=== PATIENT | male | born 1955 | race Caucasian/White ===

== ENCOUNTER 2020-01-12 00:39 | Outpatient (CLI) | payer MEDICARE, SELFPAY ==
[2020-01-12 20:03] LABS: SARS-CoV-2 RNA PCR Negative
== END 2020-01-12 00:40 | disposition home or self-care (01) ==
LOC: ANHCOVIDDT 00:41
PROVIDERS: PCP Family Medicine; Visit Provider Internal Medicine Gastroenterology
DX: Z01.812 Encounter for preprocedural laboratory examination (principal); Z11.59 Encounter for screening for other viral diseases
CPT/HCPCS: 87635; C9803; U0003

== ENCOUNTER 2020-01-14 02:09 | Day surgery (SDC) | payer MEDICARE, SELFPAY ==
[2020-01-06 12:03] VITALS: BMI 32.3
--- NOTE | 2020-01-13 13:19 | P.PNAN_ITS ---
Anes - Initial Pre Proc Eval Procedure: Operation Date: 01/14/20 08:00 Proposed Procedures p Esophagogastroduodenoscopy - Louis Landeros MD Date/Time: 01/13/20 13:19 Surgeon: Louis Landeros MD Pre Op Diagnosis: Matthews's Esophagus Patient Data Age: 64 Gender: M Height: 5 ft 11 in Weight: 105 kg Allergies Allergy/AdvReac Type Severity Reaction Status Date / Time Sulfa (Sulfonamide Allergy Unknown Hives Verified 01/14/20 06:39 Antibiotics) Home Medications Medication Instructions Recorded Confirmed Type clopidogrel 75 mg PO DAILY 01/06/20 01/14/20 History diclofenac-misoprostol 75 tablet PO 3XW PRN 01/06/20 01/06/20 History lisinopril 20 mg PO DAILY 01/06/20 01/06/20 History metformin 500 mg PO BID 01/06/20 01/06/20 History metoprolol succinate 50 mg PO DAILY 01/06/20 01/06/20 History pantoprazole 40 mg PO DAILY 01/06/20 01/06/20 History rosuvastatin 5 mg PO DAILY 01/06/20 01/06/20 History Patient hx anesthesia problems: none Family hx anesthesia problems: none [facility] Past Medical History Medical History (Updated 01/13/20 @ 13:19 by James Gonsales MD) CAD (coronary artery disease) Diabetes Hyperlipidemia Hypertension Myocardial infarct, old Social History Social History Gender identity (if verbalized by the patient): Male Anes - Eval Final PreProcedure Day of Procedure 01/13/20 13:19 Patient weight: obese Heart: regular rate and rhythm Lungs: clear to auscultation Airway: Mallampati scale class II Neurological: alert and oriented Last oral intake: >/= 8 hours ASA classification: III Emergent: no Anesthetic plan: proceed Anesthesia type and monitoring: general GIVS and standard monitoring Informed Consent: The patient's anesthetic plan and its attendant risks and benefits were discussed with the patient/family/POA. Questions were solicited and answers provided to the satisfaction of the patient/family/POA.
[2020-01-14] MEDS: LACTATED RINGERS 1,000 ML 150 ML IV CONT (06:45)
[2020-01-14 06:49] LABS: Glucose Point of Care 127 (65-105)
--- NOTE | 2020-01-14 07:59 | WPDGICN ---
Assessment and Plan Assessment and plan (1) Matthews's esophagus: Code(s): K22.70 - Matthews's esophagus without dysplasia Status: Acute Assessment and Plan: Stable history of Matthews's esophagus underlying GE reflux known. Plan is to continue proton pump inhibitor. Anti-reflux measures encourage. Surveillance EGD now on at 3 years intervals has been advised. (2) Diabetes: Code(s): E11.9 - Type 2 diabetes mellitus without complications Status: Acute (3) CAD (coronary artery disease): Code(s): I25.10 - Atherosclerotic heart disease of [place] coronary artery without angina pectoris Status: Acute (4) Hyperlipidemia: Code(s): E78.5 - Hyperlipidemia, unspecified Status: Acute (5) Hypertension: Code(s): I10 - Essential (primary) hypertension Status: Acute GI Consult Note Consult date/time: 01/14/20 07:59 HPI: Marques Barnes is a 64 year old male seen in evaluation at the request of Dr Miguel Menjivar. Patient presents for screening exam. Patient known to have Matthews's esophagus. Currently symptoms have been stable on proton pump inhibitors. Currently denies dysphagia he denies bleeding. No heartburn at present. Last screening exam was 3 years ago revealed no evidence of dysplasia. Review of Systems Review of Systems: All systems reviewed & are unremarkable except as noted in HPI and below PMFSH Past Medical History Medical History CAD (coronary artery disease) Diabetes Hyperlipidemia Hypertension Myocardial infarct, old Social History Social History Gender identity (if verbalized by the patient): Male Meds Home Medications and Allergies Home Medications Medication Instructions Recorded Confirmed Type clopidogrel 75 mg PO DAILY 01/06/20 01/14/20 History diclofenac-misoprostol 75 tablet PO 3XW PRN 01/06/20 01/06/20 History lisinopril 20 mg PO DAILY 01/06/20 01/06/20 History metformin 500 mg PO BID 01/06/20 01/06/20 History metoprolol succinate 50 mg PO DAILY 01/06/20 01/06/20 History pantoprazole 40 mg PO DAILY 01/06/20 01/06/20 History rosuvastatin 5 mg PO DAILY 01/06/20 01/06/20 History Allergies Allergy/AdvReac Type Severity Reaction Status Date / Time Sulfa (Sulfonamide Allergy Unknown Hives Verified 01/14/20 06:39 Antibiotics) Exam Narrative: Exam Narrative: Physical exam reveals patient to be alert. Vital signs stable. HEENT exam unremarkable. Lungs are clear to auscultation and percussion. Heart is without murmur or extra sounds. Abdominal exam bowel sounds are present soft nontender with no organomegaly.
[2020-01-14] MEDS: BENZOCAINE (*SP) 60 ML SPRAY CAN (HURRICAINE) 1 SPRAY MUCOUS MEM (08:18)
[2020-01-14 08:22] VITALS: BP 102/62; PULSE 60; RESP 23; O2SAT 95
[2020-01-14 08:32] VITALS: BP 100/64; PULSE 58; RESP 21; O2SAT 95
[2020-01-14 08:42] VITALS: BP 109/67; PULSE 56; RESP 21; O2SAT 96
== END 2020-01-14 08:55 | disposition home or self-care (01) ==
PROVIDERS: PCP Family Medicine; Visit Provider Internal Medicine Gastroenterology
PROC: 0DJ08ZZ Inspection of Upper Intestinal Tract, Via Natural or Artificial Opening Endoscopic (ICD-10-PCS; CPT 43235; principal; 2020-01-14 08:00)
DX: K22.70 Barrett's esophagus without dysplasia (principal); K44.9 Diaphragmatic hernia without obstruction or gangrene; E11.9 Type 2 diabetes mellitus without complications; I25.10 Atherosclerotic heart disease of native coronary artery without angina pectoris; E78.5 Hyperlipidemia, unspecified; I10 Essential (primary) hypertension; I25.2 Old myocardial infarction; Z79.84 Long term (current) use of oral hypoglycemic drugs; Z79.02 Long term (current) use of antithrombotics/antiplatelets
CPT/HCPCS: 43239; 88305; J2704; J7120

== ENCOUNTER → 2020-02-11 11:06 | Outpatient (CLI) | payer MEDICARE, SELFPAY ==
--- NOTE | ~2020-02-11 | XR_ITS ---
XR ankle RT min 3V DATE: 02/11/2020 11:57 INDICATION: Right ankle pain TECHNIQUE: Standing 3 view examination COMPARISON: None FINDINGS: There is mild lateral soft tissue swelling. Posterior tibial artery calcification. There is moderate posterior and slight plantar calcaneal enthesopathy. No fracture or dislocation of the ankle or disruption of the ankle mortise is detected. No periosteal reaction or bone destruction. IMPRESSION: Mild lateral soft tissue swelling Calcaneal enthesopathy Reviewed, dictated and finalized at location B.
== END ==
PROVIDERS: Visit Provider Podiatrist Foot & Ankle Surgery
DX: M77.31 Calcaneal spur, right foot (principal); M79.89 Other specified soft tissue disorders
CPT/HCPCS: 73610

== ENCOUNTER 2020-06-10 14:06 | Outpatient (CLI) | payer MEDICARE, SELFPAY ==
--- NOTE | ~2020-06-10 | XR_ITS ---
XR chest 2V 06/10/2020 15:04 Indication: Coronary artery disease. Procedure: PA and lateral views of the chest Comparison: 01/24/2011 Findings: Heart size normal. There is atherosclerosis and ectasia of the aorta. No acute osseous abno rmality. There is a hiatal hernia. There is left basilar atelectasis. Impression: 1: Left basilar atelectasis. Reviewed, dictated and finalized at location B. [facility] Impression: 1: Left basilar atelectasis.
[2020-06-10 15:19] LABS: Basophils Percent Auto 0.6 % (0.2-1.2); Eosinophils Absolute Auto 0.1 K/mm3 (0-0.3); Hematocrit 42.5 % (42.0-52.0); Hemoglobin 14.5 g/dL (14.0-18.0); Immature Granulocyte Absolute 0.02 K/mm3 (0.00-0.031); Immature Granulocyte Percent A 0.3 % (0-0.5); Lymphocytes Absolute Auto 1.85 K/mm3 (0.9-3.2); Lymphocytes Percent Auto 26.4 % (18.3-44.2); Mean Corpuscular HGB Conc 34.1 g/dl (32-36); Mean Corpuscular Hemoglobin 30.4 pg (26-34); Mean Corpuscular Volume 89.1 fl (80-100); Mean Platelet Volume 10.9 fl (7.4-10.4); Monocytes Absolute Auto 1.2 K/mm3 (0.1-0.6); Monocytes Percent Auto 16.6 % (2.6-8.5); Neutrophils Absolute Auto 3.8 K/mm3 (1.3-6.7); Neutrophils Percent Auto 54.1 % (45.5-73.1); Platelet Count Result 220 k/mm3 (150-375); Red Blood Count 4.77 M/mm3 (4.6-6.20); Red Cell Distribution Width 14.6 % (11.5-14.5)
[2020-06-10 15:50] LABS: Anion Gap 8 mmol/L (8-16); Blood Urea Nitrogen 29 mg/dL (9-20); Calcium 9.4 mg/dL (8.4-10.2); Carbon Dioxide 29 mmol/L (22-30); Chloride 105 mmol/L (98-107); Estimated Glomerular Filt Rate 55; Glucose 106 mg/dL (75-110); Potassium 4.4 mmol/L (3.4-5.0); Sodium 142 mmol/L (137-145)
== END 2020-06-10 14:07 | disposition home or self-care (01) ==
LOC: ANHLAB 14:15
PROVIDERS: PCP Family Medicine
DX: I25.10 Atherosclerotic heart disease of native coronary artery without angina pectoris (principal); R91.8 Other nonspecific abnormal finding of lung field
CPT/HCPCS: 36415; 71046; 80048; 85025

== ENCOUNTER 2020-08-04 09:47 | Outpatient (CLI) | payer MEDICARE, SELFPAY ==
[2020-08-04 10:42] LABS: Basophils Absolute Auto 0.1 K/mm3 (0.0-0.1); Basophils Percent Auto 0.9 % (0.2-1.2); Eosinophils Absolute Auto 0.2 K/mm3 (0-0.3); Eosinophils Percent Auto 3.6 % (0-4.4); Hematocrit 44.2 % (42.0-52.0); Hemoglobin 14.6 g/dL (14.0-18.0); Immature Granulocyte Absolute 0.01 K/mm3 (0.00-0.031); Immature Granulocyte Percent A 0.2 % (0-0.5); Lymphocytes Absolute Auto 1.61 K/mm3 (0.9-3.2); Lymphocytes Percent Auto 27.9 % (18.3-44.2); Mean Corpuscular Hemoglobin 30.1 pg (26-34); Mean Corpuscular Volume 91.1 fl (80-100); Mean Platelet Volume 11.2 fl (7.4-10.4); Monocytes Absolute Auto 0.8 K/mm3 (0.1-0.6); Monocytes Percent Auto 13.5 % (2.6-8.5); Neutrophils Absolute Auto 3.1 K/mm3 (1.3-6.7); Neutrophils Percent Auto 53.9 % (45.5-73.1); Platelet Count Result 200 k/mm3 (150-375); Red Blood Count 4.85 M/mm3 (4.6-6.20); Red Cell Distribution Width 14.6 % (11.5-14.5); White Blood Count 5.8 K/mm3 (4.5-10.0)
[2020-08-04 10:52] LABS: Anion Gap 6 mmol/L (8-16); Blood Urea Nitrogen 26 mg/dL (9-20); Calcium 9.2 mg/dL (8.4-10.2); Carbon Dioxide 30 mmol/L (22-30); Chloride 105 mmol/L (98-107); Estimated Glomerular Filt Rate > 60; Glucose 154 mg/dL (75-110); Potassium 4.4 mmol/L (3.4-5.0); Sodium 141 mmol/L (137-145)
== END 2020-08-04 09:48 | disposition home or self-care (01) ==
PROVIDERS: PCP Family Medicine
DX: I25.10 Atherosclerotic heart disease of native coronary artery without angina pectoris (principal)
CPT/HCPCS: 36415; 80048; 85025

== ENCOUNTER 2020-08-16 10:13 | Outpatient (CLI) | payer MEDICARE, SELFPAY ==
[2020-08-16 10:52] LABS: Basophils Percent Auto 0.6 % (0.2-1.2); Eosinophils Absolute Auto 0.2 K/mm3 (0-0.3); Eosinophils Percent Auto 4.3 % (0-4.4); Hematocrit 42.7 % (42.0-52.0); Hemoglobin 14.2 g/dL (14.0-18.0); Immature Granulocyte Absolute 0.02 K/mm3 (0.00-0.031); Immature Granulocyte Percent A 0.4 % (0-0.5); Lymphocytes Absolute Auto 1.33 K/mm3 (0.9-3.2); Lymphocytes Percent Auto 28.5 % (18.3-44.2); Mean Corpuscular HGB Conc 33.3 g/dl (32-36); Mean Corpuscular Hemoglobin 29.6 pg (26-34); Mean Platelet Volume 10.4 fl (7.4-10.4); Monocytes Absolute Auto 0.7 K/mm3 (0.1-0.6); Monocytes Percent Auto 14.1 % (2.6-8.5); Neutrophils Absolute Auto 2.4 K/mm3 (1.3-6.7); Neutrophils Percent Auto 52.1 % (45.5-73.1); Platelet Count Result 194 k/mm3 (150-375); Red Cell Distribution Width 14.5 % (11.5-14.5); White Blood Count 4.7 K/mm3 (4.5-10.0)
[2020-08-16 11:19] LABS: Anion Gap 7 mmol/L (8-16); Blood Urea Nitrogen 24 mg/dL (9-20); Calcium 9.4 mg/dL (8.4-10.2); Carbon Dioxide 27 mmol/L (22-30); Chloride 108 mmol/L (98-107); Estimated Glomerular Filt Rate > 60; Glucose 180 mg/dL (75-110); Potassium 4.3 mmol/L (3.4-5.0); Sodium 142 mmol/L (137-145)
== END 2020-08-16 10:14 | disposition home or self-care (01) ==
PROVIDERS: PCP Family Medicine
DX: I25.10 Atherosclerotic heart disease of native coronary artery without angina pectoris (principal)
CPT/HCPCS: 36415; 80048; 85025

== ENCOUNTER 2021-02-07 15:31 | Outpatient (CLI) | payer MEDICARE, SELFPAY ==
--- NOTE | ~2021-02-07 | MR_ITS ---
EXAMINATION: MR hip LT wo con DATE: 02/07/2021 17:09 INDICATION: Severe left hip osteoarthritis TECHNIQUE: Magnetic resonance imaging (MRI) of the left hip was performed without intravenous contra st. Sequences included full-field axial PD-weighted FS FSE and T1-weighted FSE, coronal of the pelvis with PD-weighted FS FSE, T2-weighted FSE and T1-weighted FSE, small field of view of the left hip w ith axial PD-weighted FS FSE, sagittal PD-weighted FS FSE, coronal PD-weighted FS FSE and coronal T2 weighted FSE. Additional radial T1-weighted FGR oriented orthogonal to the acetabular rim were obtai leslie for evaluation of the labrum. COMPARISON: None FINDINGS: Bones/labrum/cartilage: Alignment is normal. No fracture, avascular necrosis or pathologic marrow replacing process. Severe osteoarthritis at the bilateral hips with regions of regions of full-thickness cartilage loss with sharlene ne-on-bone apposition at the superolateral aspect of the joint space. Extensive subarticular cystic c hanges and surrounding edema along both femoral heads with surrounding marrow edema. Lesser degree of subarticular cystic change at the superior aspect of the bilateral acetabula. Diffuse degeneration o f the left labrum which appears largely absent with minimal residual frayed labral tissue. Moderate l umbar spondylosis. Fluid: Symmetric physiologic amount of fluid within both hip joints. Soft tissues: There are partial tears of the portion of the bilateral gluteus medius tendons attach to the lateral facets, both which appear attenuated and with retraction of the myotendinous junction from the footpl ate which measures approximately 2.8 cm on the right and 3.5 cm on the left. Mild tendinopathy withou t discrete tear of the more posterior left gluteus medius tendon attached to the posterior facet. Ass ociated fatty atrophy of the anterior bilateral gluteus medius muscle belly, mild on the right and mo derate severity on the left. Likely additional partial thickness tears of the bilateral gluteus minim us tendons both of which appear attenuated and with moderate severity fatty atrophy of both gluteus m inimus muscle bellies. The iliopsoas tendons are normal. There is mild bilateral ischial bursitis wit h mild tendinopathy at the left and minimal at the right semimembranosus tendons without discrete tea r. The common tendon of the biceps femoris and semitendinosus is normal bilaterally. Prostatomegaly m easuring 5.8 x 4.6 cm. Prominent sigmoid diverticulosis without adjacent inflammatory change to sugge st diverticulitis. Limited evaluation of visceral organs of the pelvis is otherwise unremarkable. No pathologically enlarged pelvic/inguinal lymphadenopathy. IMPRESSION: 1. Severe bilateral hip arthritis with severe degenerative tearing of the left acetabular labrum. Rig ht labrum is not diagnostically evaluated on the larger field of view images. 2. Partial tears of the bilateral gluteus medius minimus and anterior portions of the bilateral glute us medius tendons at the anterior and lateral facets of the greater trochanters. There is associated moderate fatty atrophy of the bilateral gluteus minimus and anterior left gluteus medius muscles and mild fatty atrophy of the anterior right gluteus medius muscle. 3. Mild bilateral ischial bursitis with mild tendinopathy without discrete tears of the proximal semi membranosus tendons. 4. Prostatomegaly. Reviewed, dictated and finalized at location A. IMPRESSION: 1. Severe bilateral hip arthritis with severe degenerative tearing of the left acetabular labrum. Right labrum is not diagnostically evaluated on the larger f ield of view images. 2. Partial tears of the bilateral gluteus medius minimus and anterior portions of the bilateral gluteus medius
== END 2021-02-07 15:32 | disposition home or self-care (01) ==
LOC: ANHIMG 15:43
PROVIDERS: PCP Family Medicine; Visit Provider Orthopaedic Surgery
DX: M70.71 Other bursitis of hip, right hip (principal); M70.72 Other bursitis of hip, left hip; N40.0 Benign prostatic hyperplasia without lower urinary tract symptoms; M16.0 Bilateral primary osteoarthritis of hip
CPT/HCPCS: 73721

== ENCOUNTER 2021-02-10 07:55 | Outpatient (CLI) | payer MEDICARE, SELFPAY ==
[2021-02-10 09:09] LABS: Basophils Percent Auto 0.7 % (0.2-1.2); Eosinophils Absolute Auto 0.2 K/mm3 (0-0.3); Eosinophils Percent Auto 3.5 % (0-4.4); Hematocrit 42.6 % (42.0-52.0); Hemoglobin 13.8 g/dL (14.0-18.0); Immature Granulocyte Absolute 0.02 K/mm3 (0.00-0.031); Immature Granulocyte Percent A 0.4 % (0-0.5); Lymphocytes Absolute Auto 1.53 K/mm3 (0.9-3.2); Lymphocytes Percent Auto 28.1 % (18.3-44.2); Mean Corpuscular HGB Conc 32.4 g/dl (32-36); Mean Corpuscular Hemoglobin 29.4 pg (26-34); Mean Corpuscular Volume 90.6 fl (80-100); Mean Platelet Volume 10.8 fl (7.4-10.4); Monocytes Absolute Auto 0.8 K/mm3 (0.1-0.6); Monocytes Percent Auto 14.2 % (2.6-8.5); Neutrophils Absolute Auto 2.9 K/mm3 (1.3-6.7); Neutrophils Percent Auto 53.1 % (45.5-73.1); Platelet Count Result 183 k/mm3 (150-375); Red Cell Distribution Width 14.6 % (11.5-14.5); White Blood Count 5.4 K/mm3 (4.5-10.0)
[2021-02-10 09:19] LABS: Albumin Level 4.6 g/dL (3.5-5.1); Anion Gap 7 mmol/L (8-16); Blood Urea Nitrogen 26 mg/dL (9-20); Calcium 9.7 mg/dL (8.4-10.2); Carbon Dioxide 27 mmol/L (22-30); Chloride 108 mmol/L (98-107); Estimated Glomerular Filt Rate > 60; Glucose 135 mg/dL (65-110); Hemoglobin A1C 7.2 % (<5.7); Potassium 4.4 mmol/L (3.4-5.0); Sodium 142 mmol/L (137-145)
[2021-02-10 09:20] LABS: Urine Cotinine NEGATIVE
== END 2021-02-10 07:56 | disposition home or self-care (01) ==
LOC: ANHSURGERY 07:56
PROVIDERS: PCP Family Medicine; Visit Provider Orthopaedic Surgery
DX: Z01.812 Encounter for preprocedural laboratory examination (principal); M16.12 Unilateral primary osteoarthritis, left hip; Z51.81 Encounter for therapeutic drug level monitoring; Z79.899 Other long term (current) drug therapy
CPT/HCPCS: 80048; 80307; 82040; 83036; 85025; 87070; 87147; 87181; 87186

== ENCOUNTER 2021-02-28 02:31 | Day surgery (SDC) | payer MEDICARE, SELFPAY ==
[2021-02-10 08:01] VITALS: BMI 33.7
[2021-02-10 08:55] VITALS: BP 140/87; PULSE 63; RESP 16; TEMP 36.9; O2SAT 98
--- NOTE | 2021-02-25 09:59 | PM.IMHP ---
H&P: HPI History of Present Illness Date/Time: 02/25/21 09:59 66-year-old male patient of Dr. Menjivar who presents today for a left total arthroplasty anterior approach. He had been having pain in his hip for years. He has rather severe arthritis in both hips and at this point the left is more painful than the right. He is limited and unable take anti-inflammatories due to being on Plavix long-term. He has been noticing a lot of pain in the left groin left anterior thigh to the point now where it bothers him on a daily basis. He is fairly miserable. He would like to proceed with total hip arthroplasty at this point rather continue nonsurgical treatment. Chief Complaint: left hip DJD Review of Systems Review of Systems: All systems reviewed & are unremarkable except as noted in HPI and below PMFSH Past Medical History Medical History CAD (coronary artery disease) Diabetes Hyperlipidemia Hypertension Myocardial infarct, old Social History Social History Smoking status: Never smoker Additional smoking assessment comments: DENIES ANY FORM OF TOBACCO USE Alcohol intake: current Alcohol use details: 2-3 DRINKS PER MONTH Gender identity (if verbalized by the patient): Male Spiritual care concerns: No Meds Home Medications and Allergies Home Medications Medication Instructions Recorded Confirmed Type clopidogrel 75 mg PO DAILY 01/06/20 02/10/21 History lisinopril 20 mg PO BID 01/06/20 02/10/21 History metformin 500 mg PO BID 01/06/20 02/10/21 History metoprolol succinate 75 mg PO QAM 01/06/20 02/10/21 History pantoprazole 40 mg PO DAILY 01/06/20 02/10/21 History rosuvastatin 5 mg PO HS 01/06/20 02/10/21 History Bifidobacterium infantis [Align] 4 mg PO DAILY 02/10/21 02/10/21 History aspirin [Adult Low Dose Aspirin] 81 mg PO QPM 02/10/21 02/10/21 History cholecalciferol (vitamin D3) 50 mcg PO DAILY 02/10/21 02/10/21 History coQ10 (ubiquinol) 100 mg PO DAILY 08/05/21 08/05/21 History diclofenac sodium 75 mg PO QAM 02/10/21 02/10/21 History hydrochlorothiazide 25 mg PO 3XW 02/10/21 02/10/21 History magnesium 100 mg PO DAILY 02/10/21 02/10/21 History vitamin B complex [B Complex] 1 cap PO DAILY 02/10/21 02/10/21 History Allergies Allergy/AdvReac Type Severity Reaction Status Date / Time Sulfa (Sulfonamide Allergy Unknown Hives Verified 02/10/21 08:02 Antibiotics) Exam Narrative: 66-year-old male alert pleasant. He walks with a mild limp. He also has a mild Trendelenburg sag when he walks. His left hip flexes to 100 which cause him lateral hip pain. Internal rotation is 0 and external rotation of 30 both with groin pain. Stinchfield maneuver causes him groin pain. Skin through the left groin crease anterior lateral thigh looks normal. He has a 4- out of 5 abduction strength in lateral position. No tenderness over the greater trochanter. Normal sensation left lower extremity. 2+ posterior tibial pulse trace dorsalis pedis pulse. No edema in left lower extremity. He is 5 ft 9 to 241 lb. Resp: Auscultation: clear to auscultation bilaterally Cardio: Rate: regular rate Rhythm: regular rhythm Assessment and Plan Additional Plan 66-year-old male with severe arthritis of left hip. He also has chronic tearing and fatty infiltration of the gluteus medius and minimus muscles. Dr. El discussed treatment options with him. Patient does not wish to undergo repair of his abductor tendons at the time surgery and therefore has recommended using an anterior approach with a dual mobility cup for extra stability given the deficiency of the abductors. Surgical procedure as well as risk and complications were discussed in detail all questions were answered we will proceed patient will avoid aspirin ibuprofen products 1 prior surgery he has seen his bed laborer Dr. Torres and has been cleared.
[2021-02-28] VITALS (17 sets, daily range): BP systolic 58–164; BP diastolic 38–88; PULSE 65–91; RESP 6–19; TEMP 36.2–37.6; O2SAT 94–100
--- NOTE | ~2021-02-28 | XR_ITS ---
EXAMINATION: XR hip LT 1V w AP pelvis DATE: 02/28/2021 12:37 INDICATION: Postoperative evaluation following left total hip arthroplasty TECHNIQUE: Anteroposterior and lateral views of the left hip were obtained. COMPARISON: Intraoperative radiograph dated 02/28/2021 FINDINGS: Noncemented left total hip arthroplasty which appears well seated in near anatomic alignment. The dewayne tabular component is affixed with a single screw. Surgical drain and expected subcutaneous gas in the postoperative bed. No fractures identified. Severe osteoarthritis of the right hip with remodeling and some flattening of the superolateral aspect of the right femoral head. Heterotopic ossification l ikely along the right iliopsoas tendon which projects medial to the neck of the right femur. IMPRESSION: 1. Left total hip arthroplasty, negative for postoperative purposes. 2. Severe right hip osteoarthritis. Reviewed, dictated and finalized at location B.
--- NOTE | ~2021-02-28 | XR_ITS ---
EXAMINATION: XR surgery orthopedic DATE: 02/28/2021 12:37 INDICATION: Anterior approach left total hip arthroplasty. TECHNIQUE: A fluoroscopic images of the left hip were obtained in frontal projection during procedure performed by Dr. El. Radiologist was not present for the imaging or procedure. The amount of fl uoroscopy time used during this procedure was 1.0 minutes. COMPARISON: None. FINDINGS: Noncemented left total hip arthroplasty which appears in near-anatomic alignment. The acetabular comp onent is affixed with a single screw. No fractures identified. IMPRESSION: 1. Expected appearance during left total hip arthroplasty. Reviewed, dictated and finalized at location B.
--- NOTE | 2021-02-28 07:04 | WPDHPUPDATE1 ---
History and Physical Update Update Date/Time: 02/28/21 07:04 History and Physical has been reviewed, including an updated exam of the patient. There are NO changes in the patient's condition. Risks, benefits, and alternatives have been discussed and questions answered. Patient agrees to proceed with procedure.
[2021-02-28] MEDS: LACTATED RINGERS 1,000 ML 30 ML IV CONT ×2 (07:10→12:42)
--- NOTE | 2021-02-28 07:13 | WPDANESEPPF ---
Anes - Initial Pre Proc Eval Procedure: Operation Date: 02/28/21 07:30 Proposed Procedures p Left Total Hip Arthroplasty, Anterior Approach - Rohan El MD Date/Time: 02/28/21 07:13 Surgeon: Rohan El MD Pre Op Diagnosis: severe OA Left hip, abductor insuff Patient Data Age: 66 Gender: M Height: 1.8 m Weight: 109.6 kg Last Vital Signs Temp 98.5 F 02/10/21 08:55 Pulse 63 02/10/21 08:55 Resp 16 02/10/21 08:55 BP 140/87 02/10/21 08:55 Pulse Ox 98 02/10/21 08:55 Allergies Allergy/AdvReac Type Severity Reaction Status Date / Time Sulfa (Sulfonamide Allergy Unknown Hives Verified 02/28/21 06:24 Antibiotics) Home Medications Medication Instructions Recorded Confirmed Type clopidogrel 75 mg PO DAILY 01/06/20 02/28/21 History lisinopril 20 mg PO BID 01/06/20 02/28/21 History metformin 500 mg PO BID 01/06/20 02/28/21 History metoprolol succinate 75 mg PO QAM 01/06/20 02/28/21 History pantoprazole 40 mg PO DAILY 01/06/20 02/10/21 History rosuvastatin 5 mg PO HS 01/06/20 02/28/21 History Bifidobacterium infantis [Align] 4 mg PO DAILY 02/10/21 02/10/21 History aspirin [Adult Low Dose Aspirin] 81 mg PO QPM 02/10/21 02/28/21 History cholecalciferol (vitamin D3) 50 mcg PO DAILY 02/10/21 02/10/21 History coQ10 (ubiquinol) 100 mg PO DAILY 02/10/21 02/10/21 History diclofenac sodium 75 mg PO QAM 02/10/21 02/10/21 History hydrochlorothiazide 25 mg PO 3XW 02/10/21 02/28/21 History magnesium 100 mg PO DAILY 02/10/21 02/28/21 History vitamin B complex [B Complex] 1 cap PO DAILY 02/10/21 02/10/21 History Patient hx anesthesia problems: none Family hx anesthesia problems: none PMFSH Past Medical History Medical History CAD (coronary artery disease) Diabetes Hyperlipidemia Hypertension Myocardial infarct, old Social History Social History Smoking status: Never smoker Additional smoking assessment comments: DENIES ANY FORM OF TOBACCO USE Alcohol intake: current Alcohol use details: 2-3 DRINKS PER MONTH Living arrangements: with family Gender identity (if verbalized by the patient): Male Spiritual care concerns: No Anes - Eval Final PreProcedure Day of Procedure 02/28/21 07:13 Patient weight: obese Heart: regular rate and rhythm Lungs: clear to auscultation Airway: Mallampati scale class III Neurological: alert and oriented Last oral intake: >/= 8 hours ASA classification: III Emergent: no Anesthetic plan: proceed Anesthesia type and monitoring: general ETT and standard monitoring Informed Consent: The patient's anesthetic plan and its attendant risks and benefits were discussed with the patient/family/POA. Questions were solicited and answers provided to the satisfaction of the patient/family/POA.
[2021-02-28] MEDS: TRANEXAMIC ACID 1,000MG/ISO100 1,000 MG/100 ML BAG 200 MG IVPB (07:15)
[2021-02-28 07:19] LABS: Glucose Point of Care 134 mg/dl (65-105)
[2021-02-28] MEDS: ceFAZolin 2 GM/D5W 50 ML 2 GM/50 ML BAG IVPB (08:00)
[2021-02-28] MEDS: ceFAZolin SODIUM 1 GM VIAL 3 GM IRRIGATION (08:12)
[2021-02-28] MEDS: TRANEXAMIC ACID 1,000 MG/10 ML AMPUL 10 MG IV PUSH (12:11)
[2021-02-28] MEDS: ceFAZolin SODIUM 1 GM VIAL 2 GM IV PUSH (12:11)
[2021-02-28] MEDS: ceFAZolin SODIUM 1 GM VIAL IRRIGATION (12:18)
--- NOTE | 2021-02-28 12:36 | W.PM.PROC2 ---
Procedure Note - Detailed Date of Procedure 02/28/21 Pre-op Diagnosis severe OA Left hip, abductor insuff Post-op Diagnosis same Procedure Performed Direct anterior approach left total hip arthroplasty with dual mobility cup Surgeon Rohan El MD Field Interviewer Silvio Anesthesia general Indications Pain Findings Bone in the proximal femur was somewhat osteopenic to a degree would be appropriate to check a bone density on this gentleman and the intramedullary canal of the femoral neck was filled with soft tissue without any significant cancellous structure which we sent to pathology and fresh frozen section showed perhaps some increased cellularity but no evidence of cancer but cancer cannot be ruled out. The formalin fixed specimen is are pending. MRI scan preoperatively showed no evidence of marrow replacing process in the proximal femur. Description of Procedure Patient was brought to the operating room and general anesthesia was administered. Boots were placed on the feet with additional padding and the [facility] prepped draped usual fashion. He received 2 g Ancef weight based vancomycin 1 g of tranexamic acid preoperatively. The 10 cm longitudinal incision was made starting 3 cm lateral to the ASIS. Dissection was carried down exposing the fascia over the tensor fascia terrance which was longitudinally incised over the mid point of the TFL muscle. The fascia was elevated off the anterior 1/2 the TFL muscle and the interval between TFL and rectus femoris developed. The crossing branches of ascending lateral femoral circumflex vessels were ligated with suture divided. Ileal capsule layers elevated off the anterior capsule hip abducted internally rotated and the atrophied gluteus minimus elevated off the lateral capsule. Standard capsulotomy was performed femoral neck osteotomy made according to preoperative templating. The femoral head was removed without difficulty. It measured 48.5 mm in diameter. It was arthritic all the way around. The femur was externally rotated extended and interval between conjoined tendon and piriformis was incised allowing the piriformis to flip. The leg was placed back in the horizontal position. The acetabulum was exposed and labrum excised. We medialized 44 Reamer and reamed up to [id number] and 52 Reamer failed to reach the periphery and therefore we reamed with a 53 and a 54. Following 54 reaming we countersunk additional 3 mm with the 53 Reamer for additional press fit. His bone was of good quality all the way around the rim somewhat osteopenic in the cancellous bone. We impacted the 54 mm pinnacle shell at 40? of abduction and anteversion so that the shell was just under the anterior rim and about 4 mm proud the posterior rim. Excellent Press-Fit was achieved. A single screw was placed in the ilium which obtained only fair purchase because of his osteopenia. Are press fit on the cup the was excellent. We placed the dual mobility metal shell after carefully exposing the acetabular component and removal of any debris. This seated without difficulty. The femur was externally rotated and extended and we carefully curetted the proximal femoral neck. We wanted to make sure there was no soft tissue we would be pushing down the femur from the proximal femur. With this done and irrigation of the wound we then inserted the canal opening rasped and broached up to a size 6 which gave a total stability. This was countersunk to the point where we thought her at the right level. We tried to reduce the femur but it was too tight to reduce with the 1.5 head and the appropriate plastic to mobility head. We looked at the neck height under fluoro and see that it was still little bit high. We reduced this to a very we countersunk the broach another 4 mm and trialed and it seemed that we had appropriate buddhism of leg length and offset at this time. The broach looked a little undersized in
[2021-02-28 13:15] LABS: Glucose Point of Care 211 mg/dl (65-105)
--- NOTE | 2021-02-28 13:15 | SUR.PHASEI ---
Addendum entered by Ana Pastor RN 02/28/21 13:38: Phenlephrine per Dr. Gonsales Addendum entered by Ana Pastor RN 02/28/21 13:36: Phenylephrine 200mcg given at 1246, additional 200mcg given at 1248 Original Note: Patient arrived to PACU bed 3 at 1242, unable to obtain pulse ox, patient appeared cyanotic. Dr. Gonsales at bedside, began utilizing ambubag, O2 sat increased to 100%, patient maintaining adequate oxygen saturation with 15L, simple mask oral airway. Dr. Gonsales states patient is stable at this time. Will continue to monitor.
--- NOTE | 2021-02-28 15:16 | ADMGEN ---
This patient, Marques Barnes, was admitted to Medical Room 253-01. Patient/family oriented to hospital policies and general routines including ID bracelet, bed and alarms, visiting hours, pain management, procedures, bathroom and other care routines, personal items, smoking policy, room service/diet, and visiting hours. Information on how to activate the Rapid Response Team has been discussed. Patient/Family are encouraged to report perceived risks to care and to ask questions if they do not understand what they are told or what they should do.
[2021-02-28 15:18] LABS: Hemoglobin 12.4 g/dL (14.0-18.0)
[2021-02-28 15:49] LABS: Vitamin D 25 Hydroxy 54.4 ng/mL
[2021-02-28] MEDS: SENNA/DOCUSATE SODIUM TABLET 2 TAB PO (16:33)
[2021-02-28] MEDS: metFORMIN HCL XR 500 MG TAB.SR.24H PO (16:33)
[2021-02-28] MEDS: SODIUM CHLORIDE 0.9% IV 1,000 ML 125 ML IV CONT (16:38)
[2021-02-28] MEDS: oxyCODONE HCL (*CRX) 5 MG TAB IR PO ×2 (16:38→20:36)
[2021-02-28] MEDS: ACETAMINOPHEN 500 MG TABLET 1000 MG PO (17:24)
[2021-02-28 17:44] LABS: Glucose Point of Care 185 mg/dl (65-105)
[2021-02-28] MEDS: FAMOTIDINE 20 MG TABLET PO (20:36)
[2021-02-28] MEDS: ROSUVASTATIN 5 MG TABLET PO (20:36)
[2021-02-28 21:18] LABS: Glucose Point of Care 210 mg/dl (65-105)
[2021-03-01] MEDS: ACETAMINOPHEN 500 MG TABLET 1000 MG PO ×3 (00:02→11:17)
[2021-03-01] MEDS: oxyCODONE HCL (*CRX) 5 MG TAB IR PO ×3 (00:02→09:07)
[2021-03-01 00:11] VITALS: BP 114/65; PULSE 70; RESP 20; TEMP 36.1; O2SAT 98
[2021-03-01 02:27] VITALS: PULSE 70; RESP 20; O2SAT 98
[2021-03-01 04:11] VITALS: BP 120/67; PULSE 70; RESP 21; TEMP 36.7; O2SAT 100
[2021-03-01 05:58] LABS: Basophils Percent Auto 0.3 % (0.2-1.2); Eosinophils Percent Auto 0.1 % (0-4.4); Hematocrit 31.5 % (42.0-52.0); Hemoglobin 10.3 g/dL (14.0-18.0); Immature Granulocyte Absolute 0.04 K/mm3 (0.00-0.031); Immature Granulocyte Percent A 0.4 % (0-0.5); Lymphocytes Absolute Auto 0.89 K/mm3 (0.9-3.2); Mean Corpuscular HGB Conc 32.7 g/dl (32-36); Mean Corpuscular Hemoglobin 29.9 pg (26-34); Mean Corpuscular Volume 91.6 fl (80-100); Mean Platelet Volume 11.3 fl (7.4-10.4); Monocytes Absolute Auto 1.8 K/mm3 (0.1-0.6); Monocytes Percent Auto 18.6 % (2.6-8.5); Neutrophils Absolute Auto 7.1 K/mm3 (1.3-6.7); Neutrophils Percent Auto 71.6 % (45.5-73.1); Platelet Count Result 134 k/mm3 (150-375); Red Blood Count 3.44 M/mm3 (4.6-6.20); Red Cell Distribution Width 14.6 % (11.5-14.5); White Blood Count 9.9 K/mm3 (4.5-10.0)
--- NOTE | 2021-03-01 06:24 | PM.PNORT ---
Subjective Subjective Date/Time Seen: 03/01/21 06:24 Postop day 1 the patient is alert pleasant. He has been afebrile. Blood pressure was a little soft so we held his metoprolol. He was up walking yesterday with physical therapy very comfortable. He was urinating yesterday while he was up walking not have any problems. Overnight he was unable to urinate. He had to be straight cath he had 900 residual. He has been told in the past that he has a history of BPH but is on no medication for that. His drain is out. Wound is dry. Neurovascular is intact. Overall pain is well controlled. Patient has very mild anemia from surgery. Chem panel is not back yet. Vitamin-D was found to be within the normal ranges well. Will have patient work with therapy today. Will have him up walking more and have him up in the chair a little bit more as this may help with urination. If he is unable to urinate today and needs to be catheterization again due to retention we will consult Urology. Otherwise if he does well and is able to urinate and does well with therapy we will plan on discharging him home later today. Objective Data Vital Signs Vital Signs: Vital Signs - 24 hr 02/28/21 07:00 02/28/21 12:42 02/28/21 12:56 Temperature 36.6 C 37.6 C H Pulse Rate 67 65 65 Respiratory Rate 6 L 17 Blood Pressure 160/88 H 58/38 L 164/82 H Pulse Oximetry 97 100 02/28/21 13:10 02/28/21 13:25 02/28/21 13:40 Temperature 36.2 C L Pulse Rate 69 80 80 Respiratory Rate 18 19 14 Blood Pressure 107/54 L 116/66 108/81 Pulse Oximetry 95 97 99 02/28/21 13:45 02/28/21 13:55 02/28/21 14:10 Temperature Pulse Rate 79 79 Respiratory Rate 9 L 12 Blood Pressure 109/73 112/71 Pulse Oximetry 96 94 94 02/28/21 14:24 02/28/21 14:27 02/28/21 14:30 Temperature 36.2 C L 36.2 C L Pulse Rate 84 79 79 Respiratory Rate 15 18 18 Blood Pressure 104/72 131/81 Pulse Oximetry 95 94 94 02/28/21 14:45 02/28/21 15:15 02/28/21 16:15 Temperature 36.2 C L 36.3 C L 36.2 C L Pulse Rate 80 91 88 Respiratory Rate 18 18 18 Blood Pressure 111/77 100/77 108/62 Pulse Oximetry 94 95 94 02/28/21 17:20 02/28/21 20:11 03/01/21 00:11 Temperature 36.2 C L 36.2 C L 36.1 C L Pulse Rate 76 73 70 Respiratory Rate 18 18 20 Blood Pressure 112/72 116/70 114/65 Pulse Oximetry 95 97 98 03/01/21 02:27 03/01/21 04:11 Temperature 36.7 C Pulse Rate 70 70 Respiratory Rate 20 21 H Blood Pressure 120/67 Pulse Oximetry 98 100 Intake/Output Intake/Output: Intake & Output 02/26/21 02/27/21 02/28/21 03/01/21 23:59 23:59 23:59 23:59 Intake Total 1530 50 Output Total 190 970 Balance 1340 -920 Meds/Results Medications: Active Medications Generic Name Dose Route Start Last Admin Trade Name Freq PRN Reason Stop Dose Admin Acetaminophen 1,000 mg 02/28/21 18:00 03/01/21 06:01 Acetaminophen 500 Mg Tablet PO 1,000 mg Q6HR BERTA Administration Al Hydrox/Mg Hydrox/Simethicone 30 ml 02/28/21 14:26 Mag Hydrox/Al Hydrox/Simeth 30 Ml Udc PO Q6H PRN Indigestion Apixaban 2.5 mg 03/01/21 09:00 Apixaban 2.5 Mg Tablet PO 03/18/21 09:01 Q12HR BERTA Aspirin 81 mg 03/01/21 18:00 Aspirin 81 Mg Chewable Tablet PO QPM BERTA Cephalexin HCl 500 mg 03/01/21 12:00 Cephalexin 500 Mg Capsule PO Q6HR BERTA Famotidine 20 mg 02/28/21 21:00 02/28/21 20:36 Famotidine 20 Mg Tablet PO 20 mg Q12HR BERTA Administration Hydrochlorothiazide 25 mg 02/28/21 14:26 Hydrochlorothiazide 25 Mg Tablet PO 3XW BERTA Hydroxyzine HCl 50 mg 02/28/21 14:26 Hydroxyzine Hcl 25 Mg Tablet PO Q4H PRN Itching Vancomycin HCl 1,000 mg in 250 mls @ 250 mls/hr 02/28/21 19:00 03/01/21 06:00 Vancomycin 1,000 Mg/D5w 250 Ml IVPB 03/01/21 07:59 250 mls/hr Q12H BERTA Administration Cefazolin Sodium 1 gm in 50 mls @ 100 mls/hr 02/28/21 16:00 03/01/21 00:31 Ancef 1 Gm/D5w 50 Ml Pm IVPB 03/01/21 08:29 In
[2021-03-01 06:29] LABS: Anion Gap 7 mmol/L (8-16); Blood Urea Nitrogen 27 mg/dL (9-20); Calcium 8.2 mg/dL (8.4-10.2); Carbon Dioxide 23 mmol/L (22-30); Chloride 106 mmol/L (98-107); Estimated CRCL calculation 78 ml/min; Estimated Glomerular Filt Rate > 60; Glucose 129 mg/dL (65-110); Potassium 3.7 mmol/L (3.4-5.0); Sodium 136 mmol/L (137-145)
--- NOTE | 2021-03-01 06:31 | PM.DS ---
DS: Admitting Diagnosis Admitting Diagnosis left hip DJD DS: Summary Hospital Course Hospital Course: stable Time Spent with Patient Time attestation: Total time spent providing and/or coordinating discharge services: 66-year-old male who underwent left total hip arthroplasty anterior approach on 02/28. he underwent the procedure without complications. Postoperatively his blood pressure has been a little bit soft so his metoprolol was held. Otherwise vital signs were stable. Patient was of walking with physical therapy the day of surgery comfortable. He was urinating well. Overnight patient was unable to urinate. He had a bladder scan and was straight cath he was found have 900 cc residual. He was told in the past he BPH but is on no medication for this. Patient will work with therapy today, we will also get him up to sit in the chair and walk more to see if he is able to urinate on his own. If not will have urology consulted for this. He may need to have [place] catheter placed for a day or 2 as well as be on medication. His pain is well controlled with scheduled Tylenol as well as the oxycodone 5 mg. He is going home with 10 day course of Keflex. He is also on meloxicam 7.5 mg daily for 10 days for HO prophylaxis. we are not using Celebrex on him due to his allergies sulfa medications. He is also going home on Senokot and MiraLax. Patient was advised any questions or concerns once he goes home he should call the office otherwise we will see him at his appointment dates. He is found to have issues with urinating, there is possibility he may need to stay additional night. DS: Data Data Completed and Pending Pending studies at discharge: Pending at discharge 02/28/21 09:28 Surgical [PTH] Routine Labs on day of discharge: Labs from last 24 hours 03/01/21 03/01/21 02/28/21 05:24 05:24 20:35 WBC 9.9 RBC 3.44 L Hgb 10.3 L Hct 31.5 L MCV 91.6 MCH 29.9 MCHC 32.7 RDW 14.6 H Plt Count 134 L MPV 11.3 H Immature Gran % (Auto) 0.4 Neut % (Auto) 71.6 Lymph % (Auto) 9.0 L [place] % (Auto) 18.6 H Eos % (Auto) 0.1 Baso % (Auto) 0.3 Lymph # (Auto) 0.89 L [place] # (Auto) 1.8 H Eos # (Auto) 0.0 Baso # (Auto) 0.0 Abs Immat Gran (auto) 0.04 H Absolute Neuts (auto) 7.1 H Absolute Nucleated RBC 0.0 Nucleated RBC % 0.0 Sodium 136 L Potassium 3.7 Chloride 106 Carbon Dioxide 23 Anion Gap 7 L BUN 27 H Creatinine 1.00 Estim Creat Clear Calc 78 Estimated GFR > 60 Glucose 129 H POC Capillary Glucose 210 H Calcium 8.2 L Vitamin D 25-Hydroxy Blood Type Antibody Screen 02/28/21 02/28/21 02/28/21 17:28 14:50 14:50 WBC RBC Hgb 12.4 L Hct 38.0 L MCV MCH MCHC RDW Plt Count MPV Immature Gran % (Auto) Neut % (Auto) Lymph % (Auto) [place] % (Auto) Eos % (Auto) Baso % (Auto) Lymph # (Auto) [place] # (Auto) Eos # (Auto) Baso # (Auto) Abs Immat Gran (auto) Absolute Neuts (auto) Absolute Nucleated RBC Nucleated RBC % Sodium Potassium Chloride Carbon Dioxide Anion Gap BUN Creatinine Estim Creat Clear Calc Estimated GFR Glucose POC Capillary Glucose 185 H Calcium Vitamin D 25-Hydroxy 54.4 Blood Type Antibody Screen 02/28/21 02/28/21 02/28/21 13:09 07:14 06:30 WBC RBC Hgb Hct MCV MCH MCHC RDW Plt Count MPV Immature Gran % (Auto) Neut % (Auto) Lymph % (Auto) [place] % (Auto) Eos % (Auto) Baso % (Auto) Lymph # (Auto) [place] # (Auto) Eos # (Auto) Baso # (Auto) Abs Immat Gran (auto) Absolute Neuts (auto) Absolute Nucleated RBC Nucleated RBC % Sodium Potassium Chloride Carbon Dioxide Anion Gap BUN Creatinine Estim Creat Clear Calc Estimated GFR Glucose POC Capillary Glu
--- NOTE | 2021-03-01 09:00 | PM.IMCN ---
Assessment and Plan Assessment and plan (1) History of total hip arthroplasty: Code(s): Z96.649 - Presence of unspecified artificial hip joint Status: Acute Assessment and Plan: On 02/28 PT/OT per primary team Analgesics prn On Eliquis (2) Urinary retention: Code(s): R33.9 - Retention of urine, unspecified Status: Acute Assessment and Plan: Resolved Urinating without difficulty Urology consulted (3) BPH (benign prostatic hyperplasia): Code(s): N40.0 - Benign prostatic hyperplasia without lower urinary tract symptoms Status: Acute Assessment and Plan: Tamsulosin initiated per urology Plan for follow up in 2-3 weeks outpatient (4) Hypertension: Code(s): I10 - Essential (primary) hypertension Status: Acute Assessment and Plan: Soft after surgery Resumed home meds Monitor (5) Hyperlipidemia: Code(s): E78.5 - Hyperlipidemia, unspecified Status: Acute Assessment and Plan: Resumed statin (6) CAD (coronary artery disease): Code(s): I25.10 - Atherosclerotic heart disease of [place] coronary artery without angina pectoris Status: Acute Assessment and Plan: S/p SD On ASA, statin, BB Eliquis started per primary team (7) Diabetes: Code(s): E11.9 - Type 2 diabetes mellitus without complications Status: Acute Assessment and Plan: Resumed home meds Last Hgb A1c 7.2 on 02/10/2021 HPI Data of Consult Consult date: 03/01/21 Requesting Physician: Rohan El MD Primary Care Provider: Miguel Menjivar MD Consult Narrative Narrative: Marques Barnes is a 66 year old man with a past medical history of HTN, DM type II, CAD (SD), HLD and BPH. He he underwent left total hip arthroplasty per Dr. El. He had been treated conservatively for severe arthritis in both hips with pain greater in the left. He pain worsened with little improvement from nonsurgical management. He was unable to take NSAIDs because he was on Plavix. He had no complications status post surgery. He did have some urinary retention yesterday evening and had to undergo straight catheterization. He is now voiding without difficulty. We have been asked to follow for medical managment. Review of Systems Review of Systems: All systems reviewed & are unremarkable except as noted in HPI and below PMFSH Past Medical History Medical History (Updated 03/01/21 @ 09:55 by Dea Trevizo APRN) CAD (coronary artery disease) Diabetes Hyperlipidemia Hypertension Myocardial infarct, old Social History Social History Smoking status: Never smoker Additional smoking assessment comments: DENIES ANY FORM OF TOBACCO USE Alcohol intake: current Drinks per week: 0 Alcohol use details: 2-3 DRINKS PER MONTH Substance use: never Substance use type: does not use Living arrangements: with family Gender identity (if verbalized by the patient): Male Spiritual care concerns: No Meds Home Medications and Allergies Home Medications Medication Instructions Recorded Confirmed Type lisinopril 20 mg PO BID 01/06/20 02/28/21 History metformin 500 mg PO BID 01/06/20 02/28/21 History metoprolol succinate 75 mg PO QAM 01/06/20 02/28/21 History pantoprazole 40 mg PO DAILY 01/06/20 02/10/21 History rosuvastatin 5 mg PO HS 01/06/20 02/28/21 History Align 4 mg PO DAILY 02/10/21 02/10/21 History aspirin 81 mg PO QPM 02/10/21 02/28/21 History cholecalciferol (vitamin D3) 50 mcg PO DAILY 02/10/21 02/10/21 History coQ10 (ubiquinol) 100 mg PO DAILY 02/10/21 02/10/21 History hydrochlorothiazide 25 mg PO 3XW 02/10/21 02/28/21 History magnesium 100 mg PO DAILY 02/10/21 02/28/21 History vitamin B complex 1 cap PO DAILY 02/10/21 02/10/21 History acetaminophen 1,000 mg PO Q6HR #90 tablet 03/01/21 Rx apixaban [Eliquis] 2.5 mg PO Q12HR #69 tablet 03/01/21 Rx cephalexin 500 m
[2021-03-01 09:02] LABS: Glucose Point of Care 175 mg/dl (65-105)
[2021-03-01 09:05] VITALS: PULSE 76
[2021-03-01] MEDS: CHOLECALCIFEROL 1,000 UNITS TABLET 2000 UNITS PO (09:05)
[2021-03-01] MEDS: SENNA/DOCUSATE SODIUM TABLET 2 TAB PO (09:05)
[2021-03-01] MEDS: METOPROLOL SUCCINATE EXT REL 25 MG TABCR 75 MG PO (09:05)
[2021-03-01] MEDS: PANTOPRAZOLE 40 MG TABLET PO (09:06)
[2021-03-01] MEDS: APIXABAN 2.5 MG TABLET PO (09:06)
[2021-03-01] MEDS: metFORMIN HCL XR 500 MG TAB.SR.24H PO (09:06)
[2021-03-01] MEDS: FAMOTIDINE 20 MG TABLET PO (09:06)
[2021-03-01] MEDS: polyethylene glycoL 3350 17 GM POWD.PACK PO (09:07)
[2021-03-01 09:15] VITALS: BP 131/69; PULSE 84; RESP 16; TEMP 35.9; O2SAT 96
--- NOTE | 2021-03-01 09:52 | WPDURCON ---
Assessment and Plan Assessment and plan (1) Urinary retention: Code(s): R33.9 - Retention of urine, unspecified Status: Acute Assessment and Plan: Resolved, PVR this morning via bladder scan was 185cc. No need for intermittent cath or gar. Ok to discharge home at any time. (2) BPH (benign prostatic hyperplasia): Code(s): N40.0 - Benign prostatic hyperplasia without lower urinary tract symptoms Status: Acute Assessment and Plan: Start Tamsulosin, follow up in the office in 2-3 weeks. Urology Consult Note HPI Date Seen: 03/01/21 Requesting Physician: Rohan El MD Primary Care Provider: Miguel Menjivar MD Consult Narrative Narrative: Marques Barnes is a 66 year old male who is POD #1 Left Total Hip Arthoplasty. We were consulted d/t difficulty with urination last night after gar removal and elevated residual s/p straight cath with 900cc noted. He states he did better throughout the night and into this morning. He has a history of BPH without medication treatment. Normally, he has nocturia 1-2x/night and urinates q 2-3 hours during the day, denies chronic UTI's, difficulty with starting his stream or hesitancy, but does state he has a slowed stream. He also denies hematuria. He has seen Dr. Geronimo in the past. His bladder scan post void this morning was 185cc. He is doing much better. Review of Systems Cardiovascular: Cardiovascular: Denies chest pain Respiratory: Respiratory: Reports no additional respiratory complaints Gastrointestinal: Gastrointestinal: Denies abdominal pain, Denies nausea and Denies vomiting Genitourinary: Genitourinary: Denies dysuria, Denies flank pain, Denies urinary frequency, Denies urinary hesitancy, Denies urinary incontinence and Denies urinary urgency [facility] Past Medical History Medical History (Updated 03/01/21 @ 09:55 by Dea Trevizo APRN) CAD (coronary artery disease) Diabetes Hyperlipidemia Hypertension Myocardial infarct, old Social History Social History Smoking status: Never smoker Additional smoking assessment comments: DENIES ANY FORM OF TOBACCO USE Alcohol intake: current Drinks per week: 0 Alcohol use details: 2-3 DRINKS PER MONTH Substance use: never Substance use type: does not use Living arrangements: with family Gender identity (if verbalized by the patient): Male Spiritual care concerns: No Meds Home Medications and Allergies Home Medications Medication Instructions Recorded Confirmed Type lisinopril 20 mg PO BID 01/06/20 02/28/21 History metformin 500 mg PO BID 01/06/20 02/28/21 History metoprolol succinate 75 mg PO QAM 01/06/20 02/28/21 History pantoprazole 40 mg PO DAILY 01/06/20 02/10/21 History rosuvastatin 5 mg PO HS 01/06/20 02/28/21 History Align 4 mg PO DAILY 02/10/21 02/10/21 History aspirin 81 mg PO QPM 02/10/21 02/28/21 History cholecalciferol (vitamin D3) 50 mcg PO DAILY 02/10/21 02/10/21 History coQ10 (ubiquinol) 100 mg PO DAILY 02/10/21 02/10/21 History hydrochlorothiazide 25 mg PO 3XW 02/10/21 02/28/21 History magnesium 100 mg PO DAILY 02/10/21 02/28/21 History vitamin B complex 1 cap PO DAILY 02/10/21 02/10/21 History acetaminophen 1,000 mg PO Q6HR #90 tablet 03/01/21 Rx apixaban [Eliquis] 2.5 mg PO Q12HR #69 tablet 03/01/21 Rx cephalexin 500 mg PO Q6HR #40 cap 03/01/21 Rx meloxicam [Mobic] 7.5 mg PO DAILY@0800 #14 tablet 03/01/21 Rx oxycodone 5 mg PO Q4HR #40 tablet 03/01/21 Rx polyethylene glycol 3350 [Miralax] 17 g PO QAM #30 ea 03/01/21 Rx sennosides-docusate sodium 2 tab-cap PO BID #60 tablet 03/01/21 Rx [Senokot-S] tamsulosin 0.4 mg PO DAILY #30 cap 03/01/21 Rx Allergies Allergy/AdvReac Type Severity Reaction Status Date / Time Sulfa (Sulfonamide Allergy Unknown Hives Verified 02/28/21 16:25 Antibiotics) Vital Signs Vital Signs - 24 hr 02/28/21 12:42 02/28/21 12:56 02/28/21
[2021-03-01] MEDS: CEPHALEXIN 500 MG CAPSULE PO (11:17)
== END 2021-03-01 11:32 | disposition home or self-care (01) ==
LOC: ANHSURGERY 06:02 → ANH2MED 03-01 06:30
PROVIDERS: Physician Assistant Surgical; PCP Family Medicine; Visit Provider Orthopaedic Surgery
PROC: (CPT 27130; principal; 2021-02-28 07:30)
DX: M16.12 Unilateral primary osteoarthritis, left hip (principal); M62.89 Other specified disorders of muscle; M85.88 Other specified disorders of bone density and structure, other site; N40.1 Benign prostatic hyperplasia with lower urinary tract symptoms; R33.8 Other retention of urine; I10 Essential (primary) hypertension; E11.9 Type 2 diabetes mellitus without complications; Z79.84 Long term (current) use of oral hypoglycemic drugs; E78.5 Hyperlipidemia, unspecified; I25.10 Atherosclerotic heart disease of native coronary artery without angina pectoris; I25.2 Old myocardial infarction; Z79.01 Long term (current) use of anticoagulants; Z79.82 Long term (current) use of aspirin; Z79.899 Other long term (current) drug therapy
CPT/HCPCS: 27130; 36415; 73501; 80048; 82306; 82948; 85014; 85018; 85025; 86850; 86900; 86901; 88108; 88184; 88185; 88305; 88309; 88311; 88331; 97110; 97116; 97161; 97165; 97530; 97535; A9270; J0171; J0690; J1100; J1170; J1885; J2250; J2270; J2370; J2405; J2704; J2795; J3010; J3370; J7030; J7120

== ENCOUNTER → 2021-05-11 10:34 | Outpatient (CLI) | payer MEDICARE, SELFPAY ==
--- NOTE | ~2021-05-11 | XR_ITS ---
EXAMINATION: XR chest 2V DATE: 05/11/2021 11:08 INDICATION: Bronchitis TECHNIQUE: PA and lateral views of the chest are obtained. COMPARISON: 06/10/2020 FINDINGS: The lungs are free of acute opacities. There is no pleural effusion or pneumothorax. The ca rdiomediastinal silhouette is normal. There is moderate thoracic spondylosis. IMPRESSION: 1. No acute cardiopulmonary abnormality. Reviewed, dictated and finalized at location B.
== END ==
PROVIDERS: PCP Family Medicine; Visit Provider Physician Assistant
DX: J40 Bronchitis, not specified as acute or chronic (principal); M47.814 Spondylosis without myelopathy or radiculopathy, thoracic region
CPT/HCPCS: 71046

== ENCOUNTER 2022-02-03 07:35 | Outpatient (CLI) | payer MEDICARE, SELFPAY ==
--- NOTE | ~2022-02-03 | CT_ITS ---
EXAMINATION: CTA chest DATE: 02/03/2022 08:08 INDICATION: TECHNIQUE: Computed tomography (CT) of the chest was performed with 100 CC Omnipaque 300 intravenous contrast. Automated exposure control and iterative reconstruction technique were employed. Exam dose: 760.45 mGy-cm total exam DLP. COMPARISON: 05/11/2021 2 view chest 05/23/2019 CTA chest FINDINGS: No pulmonary consolidation or pulmonary mass lesion is evident. The ascending aorta measures 4.5 cm diameter, the proximal and distal aortic arch up to 3.9 cm diamet er the mid aortic arch 3.2 cm diameter, the descending thoracic aorta approximately 3.2 cm diameter. Degrees measurements are relatively stable since 05/23/2019. There is tortuosity of the descending th oracic aorta. Cardiomegaly. No hilar or mediastinal mass lesion or lymphadenopathy. No pericardial or pleural effusion. Approximately 10 x 6 mm hypoenhancing lesion of the right thyroid isthmus. 1.3 cm left hepatic cyst. Small sliding hiatal hernia. Normal morphology of the right adrenal gland. The left adrenal gland is only partially imaged. Diffuse idiopathic skeletal hyperostosis of the thoracic spine there appears to be fusion at C6-7 int ervertebral disc spaces. No suspicious osteolytic or osteoblastic lesion is noted. IMPRESSION: Stable thoracic aortic aneurysm since 05/23/2019; no evidence of aortic dissection Cardiomegaly Small sliding hiatal hernia 1.3 cm left hepatic cyst Intervertebral disc fusion at C6-7 Diffuse idiopathic skeletal hyperostosis of the thoracic spine Reviewed, dictated and finalized at Location [facility]. Reviewed, dictated and finalized at location B. IMPRESSION: Stable thoracic aortic aneurysm since 05/23/2019; no evidence of a ortic dissection Cardiomegaly Small sliding hiatal hernia 1.3 cm left hepatic cyst Intervertebral disc fusion at C6-7 Diffuse idiopathic skeletal hyperostosis of the thoracic spine
[2022-02-03 07:59] LABS: Estimated Glomerular Filt Rate > 60
== END 2022-02-03 07:36 | disposition home or self-care (01) ==
LOC: ANHIMG 07:37
PROVIDERS: PCP Family Medicine
DX: I25.10 Atherosclerotic heart disease of native coronary artery without angina pectoris (principal); I71.2 Thoracic aortic aneurysm, without rupture; K76.89 Other specified diseases of liver; K44.9 Diaphragmatic hernia without obstruction or gangrene; M48.14 Ankylosing hyperostosis [Forestier], thoracic region; I51.7 Cardiomegaly
CPT/HCPCS: 71275; Q9967

== ENCOUNTER 2022-04-21 01:19 | Day surgery (SDC) | payer MEDICARE, SELFPAY ==
[2022-04-06 10:55] VITALS: BMI 33.5
[2022-04-21 06:50] VITALS: BP 136/96; PULSE 83; RESP 22; TEMP 36.3; O2SAT 98
[2022-04-21] MEDS: LACTATED RINGERS 1,000 ML 150 ML IV CONT (06:59)
[2022-04-21] MEDS: AMPICILLIN 2 GM/NS 100 ML 2 GM/100 ML BAG IVPB (07:10)
[2022-04-21 07:12] LABS: Glucose Point of Care 156 mg/dl (65-105)
--- NOTE | 2022-04-21 07:18 | PM.HPGS ---
History of Present Illness History of Present Illness Consent: Risks, benefits, and alternatives have been discussed and questions answered. Patient agrees to proceed with procedure. Chief complaint: Matthews's Esophagus, family hx colon polyps Narrative: Marques Barnes is a 67 year old male Presents for colonoscopy and EGD. Patient is known to have GE reflux and Matthews's esophagus. Previously stable he is undergo surveillance at 3 year intervals. Is been 3 years since last exam. Patient also has a family history of colon polyps. Patient himself has never had colon polyps. He reports his current weight appetite and bowel movements are normal. [facility] Past Medical History Medical History (Updated 04/21/22 @ 07:20 by Louis Landeros MD) CAD (coronary artery disease) Diabetes Hyperlipidemia Hypertension Myocardial infarct, old Social History Social History Smoking status: Never smoker Additional smoking assessment comments: DENIES ANY FORM OF TOBACCO USE Alcohol intake: current Drinks per week: 0 Alcohol use details: socially Substance use: never Substance use type: does not use Living arrangements: with family Gender identity (if verbalized by the patient): Male Spiritual care concerns: No Meds Home Medications and Allergies Home Medications Medication Instructions Recorded Confirmed Type metoprolol succinate 50 mg 75 mg PO QAM 01/06/20 04/21/22 History tablet,extended release 24 hr pantoprazole 40 mg tablet,delayed 40 mg PO DAILY 01/06/20 04/21/22 History release aspirin 81 mg tablet 81 mg PO QPM 02/10/21 04/21/22 History cholecalciferol (vitamin D3) 50 50 mcg PO DAILY 02/10/21 04/21/22 History mcg (2,000 unit) tablet coQ10 (ubiquinol) 100 mg capsule 100 mg PO DAILY 02/10/21 04/21/22 History magnesium 100 mg capsule 100 mg PO DAILY 02/10/21 04/21/22 History vitamin B complex 1 cap PO DAILY 02/10/21 04/21/22 History diclofenac sodium 75 mg 75 mg PO BID PRN Pain 04/06/22 04/21/22 History tablet,delayed release hydrochlorothiazide 12.5 mg tablet 12.5 mg PO BID 04/06/22 04/21/22 History sacubitril 24 mg-valsartan 26 mg 1 tablet PO BID 04/06/22 04/21/22 History tablet (Entresto) dapagliflozin 5 mg tablet (Farxiga) 5 mg PO DAILY 04/20/22 04/21/22 History rosuvastatin 10 mg tablet 10 mg PO HS 04/20/22 04/21/22 History Allergies Allergy/AdvReac Type Severity Reaction Status Date / Time Sulfa (Sulfonamide Allergy Unknown Hives Verified 04/21/22 06:47 Antibiotics) Vital Signs Vital Signs - 24 hr 04/21/22 06:50 Temperature 97.4 F L Pulse Rate 83 Respiratory Rate 22 H Blood Pressure 136/96 H Pulse Oximetry 98 Oxygen Delivery Room Air Exam Narrative: Physical exam reveals patient to be alert. Vital signs stable. HEENT exam is unremarkable. Patient is anicteric. Lungs are clear to auscultation and percussion. Heart is without murmur or extra sounds. Abdomen bowel sounds are present soft nontender with no organomegaly. Digital external rectal exam is normal. Assessment and Plan Assessment and plan (1) Matthews's esophagus: Code(s): K22.70 - Matthews's esophagus without dysplasia Status: Acute Assessment and Plan: Anti-reflux measures are encouraged patient currently maintained on pantoprazole 40mg p.o. Daily. Plan for surveillance EGD at 3 year intervals. Further recommendations may be given after endoscopy. Currently appears stable. (2) Family history of colonic polyps: Code(s): Z83.71 - Family history of colonic polyps Status: Acute Assessment and Plan: Patient has a family history of colon polyps. Plan is for surveillance colonoscopy now further recommendations may be given after endoscopy.
--- NOTE | 2022-04-21 07:35 | WPDANESEPPF ---
Anes - Initial Pre Proc Eval Procedure: Operation Date: 04/21/22 08:00 Proposed Procedures p Esophagogastroduodenoscopy & Screening Colonoscopy - Louis Landeros MD Date/Time: 04/21/22 07:35 Surgeon: Louis Landeros MD Pre Op Diagnosis: Matthews's Esophagus, family hx colon polyps Patient Data Age: 67 Gender: M Height: 1.8 m Weight: 110.8 kg Last Vital Signs Temp 97.4 F L 04/21/22 06:50 Pulse 83 04/21/22 06:50 Resp 22 H 04/21/22 06:50 BP 136/96 H 04/21/22 06:50 Pulse Ox 98 04/21/22 06:50 O2 Del Method Room Air 04/21/22 06:50 Allergies Allergy/AdvReac Type Severity Reaction Status Date / Time Sulfa (Sulfonamide Allergy Unknown Hives Verified 04/21/22 06:47 Antibiotics) Home Medications Medication Instructions Recorded Confirmed Type metoprolol succinate 50 mg 75 mg PO QAM 01/06/20 04/21/22 History tablet,extended release 24 hr pantoprazole 40 mg tablet,delayed 40 mg PO DAILY 01/06/20 04/21/22 History release aspirin 81 mg tablet 81 mg PO QPM 02/10/21 04/21/22 History cholecalciferol (vitamin D3) 50 50 mcg PO DAILY 02/10/21 04/21/22 History mcg (2,000 unit) tablet coQ10 (ubiquinol) 100 mg capsule 100 mg PO DAILY 02/10/21 04/21/22 History magnesium 100 mg capsule 100 mg PO DAILY 02/10/21 04/21/22 History vitamin B complex 1 cap PO DAILY 02/10/21 04/21/22 History diclofenac sodium 75 mg 75 mg PO BID PRN Pain 04/06/22 04/21/22 History tablet,delayed release hydrochlorothiazide 12.5 mg tablet 12.5 mg PO BID 04/06/22 04/21/22 History sacubitril 24 mg-valsartan 26 mg 1 tablet PO BID 04/06/22 04/21/22 History tablet (Entresto) dapagliflozin 5 mg tablet (Farxiga) 5 mg PO DAILY 04/20/22 04/21/22 History rosuvastatin 10 mg tablet 10 mg PO HS 04/20/22 04/21/22 History Laboratory Tests 04/21/22 07:09 POC Capillary Glucose 156 mg/dl H mg/dl (65-105) Patient hx anesthesia problems: none Family hx anesthesia problems: none Results Review: All pre-operative results and documents have been reviewed as part of the pre-operative evaluation. [facility] Past Medical History Medical History (Updated 04/21/22 @ 07:20 by Louis Landeros MD) CAD (coronary artery disease) Diabetes Hyperlipidemia Hypertension Myocardial infarct, old Social History Social History Smoking status: Never smoker Additional smoking assessment comments: DENIES ANY FORM OF TOBACCO USE Alcohol intake: current Drinks per week: 0 Alcohol use details: socially Substance use: never Substance use type: does not use Living arrangements: with family Gender identity (if verbalized by the patient): Male Spiritual care concerns: No Anes - Eval Final PreProcedure Day of Procedure 04/21/22 07:35 Patient weight: obese Heart: regular rate and rhythm Lungs: clear to auscultation Airway: Mallampati scale class II Neurological: alert and oriented Last oral intake: >/= 8 hours ASA classification: III Emergent: no Anesthetic plan: proceed Anesthesia type and monitoring: general GIVS and standard monitoring Results Review: All pre-operative results and documents have been reviewed as part of the pre-operative evaluation. Informed Consent: The patient's anesthetic plan and its attendant risks and benefits were discussed with the patient/family/POA. Questions were solicited and answers provided to the satisfaction of the patient/family/POA.
--- NOTE | 2022-04-21 08:03 | SUR.OPER ---
EGD start 801 end 805, Colonoscopy start 811 end 823
[2022-04-21 08:29] VITALS: BP 98/52; PULSE 65; RESP 22; O2SAT 95
[2022-04-21 08:39] VITALS: BP 98/63; PULSE 62; RESP 21; O2SAT 96
[2022-04-21 08:49] VITALS: BP 107/73; PULSE 65; RESP 24; O2SAT 96
== END 2022-04-21 08:57 | disposition home or self-care (01) ==
PROVIDERS: PCP Family Medicine; Visit Provider Internal Medicine Gastroenterology
PROC: 0DJ08ZZ Inspection of Upper Intestinal Tract, Via Natural or Artificial Opening Endoscopic (ICD-10-PCS; CPT 43235; principal; 2022-04-21 08:00)
DX: Z12.11 Encounter for screening for malignant neoplasm of colon (principal); Z83.71 Family history of colonic polyps; K64.8 Other hemorrhoids; K57.30 Diverticulosis of large intestine without perforation or abscess without bleeding; K21.9 Gastro-esophageal reflux disease without esophagitis; K22.70 Barrett's esophagus without dysplasia; K44.9 Diaphragmatic hernia without obstruction or gangrene; Z79.82 Long term (current) use of aspirin; I25.10 Atherosclerotic heart disease of native coronary artery without angina pectoris; E11.9 Type 2 diabetes mellitus without complications; E78.5 Hyperlipidemia, unspecified; I10 Essential (primary) hypertension; I25.2 Old myocardial infarction; E66.9 Obesity, unspecified; Z68.34 Body mass index [BMI] 34.0-34.9, adult
CPT/HCPCS: 43239; G0105; 82948; 88305; J0290; J2001; J2704; J7120

== ENCOUNTER 2023-02-05 10:00 | Outpatient (CLI) | payer MEDICARE, SELFPAY ==
--- NOTE | ~2023-02-05 | CT_ITS ---
EXAMINATION: CT sinus wo con DATE: 02/05/2023 10:20 INDICATION: Sinusitis. Headache. Dizziness. TECHNIQUE: Computed tomography (CT) of the paranasal sinuses was performed without intravenous contra st. Iterative reconstruction technique was employed. The dose-length product was 300.40 mGy-cm. COMPARISON: None FINDINGS: There is mild mucosal thickening in the frontal sinuses, bilateral ethmoid sinuses, and jackson ateral maxillary sinuses. There is trace dependent fluid in the maxillary sinuses. The sphenoid sinus es are clear. 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 There is leftward deviation o f the nasal septum. The ostiomeatal units are patent bilaterally. IMPRESSION: 1. Mild mucosal thickening in the paranasal sinuses. 2. Leftward deviation of the nasal septum. Reviewed, dictated and finalized at location A.
== END 2023-02-05 10:01 | disposition home or self-care (01) ==
PROVIDERS: PCP Family Medicine; Visit Provider Otolaryngology
DX: R09.81 Nasal congestion (principal); J34.2 Deviated nasal septum
CPT/HCPCS: 70486